=== PATIENT | male | born 1960 | race Caucasian/White ===

== ENCOUNTER 2020-06-26 14:04 | Emergency (ER) | payer BC ==
[~2020-06-26] VITALS: Ht 175.3 cm; Wt 93.0 kg
--- NOTE | 2020-06-26 14:10 | NUR ---
ECG done at bedside as ordered by Dr. Guido. Patient tolerated the procedure well. Report given to
[2020-06-26 14:13] VITALS: BP_SYST 187
--- NOTE | 2020-06-26 14:13 | NUR ---
Placed in room 2 . Placed on tool pusher, blood pressure machine and pulse oximeter. To gown for exam. Side rails up. Report given to VANGIE Berry.
[2020-06-26] MEDS ORDERED: MECLIZINE HCL 25 MG TABLET (ANITVERT) PO ONE (14:15)
--- NOTE | 2020-06-26 14:15 | NUR ---
Patient arrived in the ED c/o dizziness that started today. Patient denied any chest pain or shortness of breath. Denied any fevers, chills, nausea, or vomiting. Patient is alert and oriented x4, respirations even and unlabored, speaking in full sentences, ambulating with a steady gait. VSS, pain level 0/10. Informed of approximate wait time. Instructed to notify ED staff for any changes in condition or worsening of symptoms. Patient verbalized understanding.
--- NOTE | 2020-06-26 14:25 | NUR ---
field sampling technician at bedside as ordered by Dr. Guido collecting blood specimen. Patient tolerated the procedure well.
--- NOTE | 2020-06-26 14:27 | NUR ---
Administered Meclizine PO as ordered by Dr. Guido. Patient tolerated the medication well. See eMAR for details.
[2020-06-26 14:39] LABS: BASOPHILS # (AUTO) 0.1 K/uL (0.0-0.2); BASOPHILS % (AUTO) 0.8 % (0.0-2.0); EOSINOPHILS % (AUTO) 0.2 % (0.0-4.0); HEMATOCRIT 47.1 % (36-54); HEMOGLOBIN 16.3 g/dL (14.0-18.0); LYMPHOCYTES # (AUTO) 1.2 K/uL (1.0-5.5); LYMPHOCYTES % (AUTO) 13.9 % (20.5-51.5); MEAN CORPUSCULAR HEMOGLOBIN 30 pg (27-31); MEAN CORPUSCULAR HGB CONC 35 % (32-36); MEAN CORPUSCULAR VOLUME 86 fL (79.0-98.0); MONOCYTES # (AUTO) 0.5 K/uL (0.0-1.0); MONOCYTES % (AUTO) 6.1 % (1.7-9.3); NEUTROPHILS # (AUTO) 6.7 K/uL (1.8-7.7); PLATELET COUNT (AUTO) 203 K/uL (130-430); RED BLOOD CELL COUNT(AUTO) 5.47 MIL/uL (4.2-6.2); RED CELL DISTRIBUTION WIDTH 13.4 % (9.0-15.0); WHITE BLOOD COUNT (AUTO) 8.5 K/uL (4.8-10.8)
[2020-06-26 14:55] LABS: CALCIUM 9.2 mg/dL (8.4-11.0); CREATININE 0.74 mg/dL (0.55-1.30); POTASSIUM 3.1 mmol/L (3.5-5.1)
[2020-06-26 15:01] LABS: ALBUMIN 3.9 g/dL (3.4-4.8); TOTAL BILIRUBIN 0.7 mg/dL (0.0-1.0)
[2020-06-26 15:45] VITALS: BP_SYST 154
[2020-06-26] MEDS ORDERED: POTASSIUM CHLORIDE 20 MEQ TAB.PRT.SR PO ONE (15:45)
--- NOTE | 2020-06-26 15:45 | NUR ---
Patient given written and verbal discharge instructions and verbalizes understanding. ER MD discussed with patient the results and treatment provided. Patient in stable condition. ID arm band removed. IV catheter removed intact and dressing applied, no active bleeding. Rx of Antivert and Nifedipine given. Patient educated on pain management and to follow up with PMD. Pain Scale 0/10. Opportunity for questions provided and answered. Medication side effect fact sheet provided.
[2020-06-26] MEDS ORDERED: POTASSIUM CHLORIDE 20 MEQ TAB.PRT.SR ONE (16:04)
== END 2020-06-26 15:45 | disposition home or self-care (01) ==
LOC: SED 14:04
DX: R42 Dizziness and giddiness (principal); I10 Essential (primary) hypertension
CPT/HCPCS: 36415; 80053; 84484; 85025; 93005; 99284; J8597